=== PATIENT | female | born 1965 | race Caucasian/White ===

== ENCOUNTER 2024-07-19 06:44 | Day surgery (SDC) | payer OTHER ==
[~2024-07-19] VITALS: Ht 160 cm; Wt 66.8 kg
[~2024-07-19 06:44] MED LIST: SODIUM CHLORIDE 0.9% 1,000 ML ONE
[2024-07-19] MEDS ORDERED: FentaNYL CITRATE PF 100 MCG/2 ML VIAL ONE (08:15)
[2024-07-19] MEDS ORDERED: MIDAZOLAM HCL 2 MG/2 ML VIAL ONE (08:15)
[2024-07-19] MEDS: SODIUM CHLORIDE 0.9% 1,000 ML IV ONE (08:18)
[2024-07-19 08:36] LABS: GLUCOMETER DEV NAME(LOC) SDS.; GLUCOSE,POINT OF CARE 139 MG/DL (70-110)
[2024-07-19 09:30] VITALS: PULSE 72; RESP 18; O2SAT 98
[2024-07-19] MEDS ORDERED: MethylPREDNISolone SOD SUCC 125 MG/2 ML VIAL ONE (09:54)
[2024-07-19] MEDS: MethylPREDNISolone SOD SUCC 125 MG/2 ML VIAL IVP ONE (10:26)
[2024-07-19] MEDS ORDERED: LIDOCAINE 4% 50 ML SOLUTION ONE (12:00)
[2024-07-19] MEDS ORDERED: BENZOCAINE 20% 50 MCG/SPRAY 57 GM ONE (12:00)
[2024-07-19] MEDS ORDERED: LIDOCAINE 2% 11 ML JELLY ONE (12:00)
== END 2024-07-19 11:30 | disposition home or self-care (01) ==
LOC: SURGERY 06:44
PROVIDERS: ATTEND Internal Medicine Critical Care Medicine
DX: R05.3 Chronic cough (principal); J38.4 Edema of larynx; B37.0 Candidal stomatitis; Z88.8 Allergy status to other drugs, medicaments and biological substances; I10 Essential (primary) hypertension; E11.9 Type 2 diabetes mellitus without complications; Z20.822 Contact with and (suspected) exposure to COVID-19; Z91.018 Allergy to other foods; Z98.890 Other specified postprocedural states; Z79.899 Other long term (current) drug therapy
CPT/HCPCS: 31623; 82962; 87206; 87101; 87220; 87070; 88108; 31624; 71045; 87015; J3010; J2250; J2919; J7030; Z7610